=== PATIENT | male | born 1965 | race Caucasian/White ===

== ENCOUNTER 2016-11-08 14:55 | Emergency (ER) | payer SELFPAY ==
[2016-11-08] MEDS ORDERED: cefTRIAXone\\ROCEPHIN 1 GM VIAL ONE (15:18)
[2016-11-08] MEDS ORDERED: Sodium Chloride 0.9% 100 ML ONE (15:18)
[2016-11-08] MEDS ORDERED: Fentanyl 100 MCG/2 ML VIAL ONE ×2 (15:22→16:42)
[2016-11-08] MEDS ORDERED: Sodium Chloride 0.9% 250 ML 250 ML ONE (16:00)
[2016-11-08 16:23] LABS: Troponin I Less than 0.010 ng/mL (< 0.028)
[2016-11-08 16:25] LABS: ALT (SGPT) 42 U/L (8-55); AST (SGOT) 38 U/L (5-34); Albumin 3.5 g/dL (3.5-5.0); Alkaline Phosphatase 67 U/L (40-150); Anion Gap 16 mmol/L (10-20); BUN (Urea Nitrogen) 13 mg/dL (8.9-20.6); Bilirubin, Total 0.3 mg/dL (0.2-1.2); Calc. Creatinine Clearance 0 mL/min (70-130); Calcium 8.8 mg/dL (7.8-10.44); Carbon Dioxide 24 mmol/L (22-29); Chloride 103 mmol/L (98-107); Estimated GFR-MDRD Greater than 90; Globulin 3.3 g/dL (2.4-3.5); Glucose 91 mg/dL (70-105); Potassium 3.8 mmol/L (3.5-5.1); Protein, Total 6.8 g/dL (6.0-8.3); Sodium 139 mmol/L (136-145)
[2016-11-08 16:30] LABS: Hemoglobin 12.9 g/dL (14.0-18.0); Lymphocytes 13 % (21-51); MDiff Complete? YES; Mean Corpuscular HGB CONC 32.2 g/dL (32.0-36.0); Mean Corpuscular Hemoglobin 28.9 pg (27.0-31.0); Mean Corpuscular Volume 89.6 fl (80.0-94.0); Mean Platelet Volume 5.5 fL (7.4-10.4); Monocytes 3 % (0-10); Neutrophil 84 % (42-75); Platelet Count 285 thou/uL (130-400); Red Blood Cell (RBC) Count 4.47 mill/uL (4.70-6.10); White Blood Cell (WBC) Count 20.9 thou/uL (4.8-10.8)
[2016-11-08 16:41] LABS: CKMB 1.8 ng/mL (0-6.6)
== END 2016-11-08 17:06 | disposition short-term general hospital (02) ==
LOC: NAV ERS 14:55
DX: L03.115 Cellulitis of right lower limb (principal); L02.415 Cutaneous abscess of right lower limb; I10 Essential (primary) hypertension; F17.210 Nicotine dependence, cigarettes, uncomplicated
CPT/HCPCS: 80053; 82553; 84484; 85025; 87040; 87070; 87077; 87205; 96365; 96367; 96375; 96376; J0696; J3010; J3370; J7050